=== PATIENT | female | born 1940 | race Caucasian/White ===

== ENCOUNTER 2017-05-29 13:06 | Emergency (ER) | payer MEDICARE ==
[~2017-05-29] VITALS: Ht 149.8 cm; Wt 80.3 kg
[2017-05-29 13:58] LABS: BASO % 0.5 % (0.0-1.0); EOS # 0.1 10*3/uL (0.0-0.4); EOS % 1.2 % (1.0-4.0); HEMATOCRIT 33.4 % (37.0-47.0); HEMOGLOBIN 10.8 g/dl (12.0-16.0); LYMPH # 3.5 10*3/uL (1.3-4.4); LYMPH % 41.1 % (27.0-41.0); MEAN CORPUSCULAR HGB CONC 32.3 g/dl (33.0-37.0); MEAN PLATELET VOLUME 9.5 fl (9.6-12.3); MONO # 0.8 10*3/uL (0.1-1.0); MONO % 9.6 % (3.0-9.0); NEUT # 4.1 10*3/uL (2.3-7.9); NEUT % 47.2 % (47.0-73.0); PLATELET COUNT AUTOMATED 247 10*3/uL (130-400); RED BLOOD COUNT 3.18 10*6/uL (4.10-5.10); RED CELL DISTRI WIDTH 14.6 % (0-14.5); WHITE BLOOD COUNT 8.6 10*3/uL (4.8-10.8)
[2017-05-29 14:09] LABS: CREATININE 1.93 mg/dL (0.55-1.02); POTASSIUM 4.6 mmol/L (3.5-5.1)
[2017-05-29 14:24] LABS: ACT PARTIAL THROMBO TIME 40.7 SECONDS (20.8-31.5); INTERNATIONAL NORM RATIO 4.3 (2.0-3.5)
== END 2017-05-29 16:07 | disposition home or self-care (01) ==
LOC: ED 13:06
PROVIDERS: Emergency Medicine
DX: S01.81XA Laceration without foreign body of other part of head, initial encounter (principal); R79.1 Abnormal coagulation profile; Z88.6 Allergy status to analgesic agent; Z88.8 Allergy status to other drugs, medicaments and biological substances; Z79.01 Long term (current) use of anticoagulants; Z90.710 Acquired absence of both cervix and uterus; Z90.49 Acquired absence of other specified parts of digestive tract; W01.10XA Fall on same level from slipping, tripping and stumbling with subsequent striking against unspecified object, initial encounter; Y93.01 Activity, walking, marching and hiking; Y92.89 Other specified places as the place of occurrence of the external cause; Y99.9 Unspecified external cause status